=== PATIENT | female | born 1980 | race Caucasian/White ===

== ENCOUNTER 2017-09-23 04:21 | Emergency (ER) | payer OTHER ==
[~2017-09-23] VITALS: Ht 175.3 cm; Wt 68.1 kg
[~2017-09-23 04:21] MED LIST: BACITRACIN3.5 GM BOTH EYES; WELLBUTRIN75 MG PO
[2017-09-23] MEDS ORDERED: ACULAR 0.5100 DROP/5 BOTH EYES (05:58)
[2017-09-23] MEDS ORDERED: ERYTHROMYC1 APPLICAT BOTH EYES (05:58)
[2017-09-23 06:09] VITALS: BP 122/92
== END 2017-09-23 06:11 | disposition home or self-care (01) ==
LOC: EME 04:21
DX: S05.02XA Injury of conjunctiva and corneal abrasion without foreign body, left eye, initial encounter (principal); W22.8XXA Striking against or struck by other objects, initial encounter; Z88.0 Allergy status to penicillin
CPT/HCPCS: 99281; 99282